=== PATIENT | male | born 1995 | race Caucasian/White ===

== ENCOUNTER 2025-04-22 09:07 | Emergency (ER) | payer OTHER, SELFPAY ==
[2025-04-22 09:09] VITALS: BP 126/90
--- NOTE | 2025-04-22 09:48 | ED.GENMED ---
History of Present Illness
General
Chief Complaint: Male Genito-Urinary Symptoms
Time Seen by Provider: 04/22/25 09:48
History of Present Illness
History of Present Illness:
FOCUSED PAST MEDICAL HISTORY
- Patient has history of testicular torsion
REVIEW OF OLD RECORDS
- No old records available for review in [facility]
Note:
CHIEF COMPLAINT(S)
Right sided testicular pain.
HISTORY OF PRESENT ILLNESS
The patient is a 29-year-old male with a past surgical history of varicocelectomy at age 19, presenting with right-sided testicular pain that began at 4:00 AM today. The patient describes this pain as similar but less severe than previous episodes.
No medication was taken for pain relief at home. A radiology report noted normal blood flow and no signs of orchitis. On examination, the cremasteric reflex was intact, indicating normal neural and muscular responses. There was no evidence of
testicular torsion or epididymitis on ultrasound. The patient also mentioned experiencing a sharp groin pain in March 12 after lifting at the gym, which initially led to an ER visit; however, no hernia was detected.
PHYSICAL EXAM
-General: Well appearing in no distress, appears comfortable
-HEENT: Moist oral mucosa
-Neurologic: Excellent strength all extremities, no obvious coordination deficits
-Psychiatric: Appropriate mental status, normal insight and judgement
-Extremities: Nontender, no edema, moves all extremities equally
-Skin: No rash, no lesions
-GI: No palpable hernia, no abdominal tenderness
-: Normal. Normal cremasteric reflex, questionable if any right epididymal tenderness, no significant scrotal swelling, no significant testicular tenderness
ADDITIONAL HISTORY OBTAINED FROM SOURCES OTHER THAN THE PATIENT
The patients family member is present during the evaluation and was apprised of the clinical findings and plan.
PAST MEDICAL AND SURGICAL HISTORY
The patient has a history of left-sided varicocele repair in April 2015.
PLAN
The patient is advised to follow up with a urologist, Dr. Cui, for outpatient management. The patient is instructed to take eckd-wxe-epwyjov anti-inflammatory medications, such as ibuprofen, three to four tablets every eight hours with food for a
few days to help reduce inflammation. The patient was educated on the symptoms of testicular torsion and instructed to seek immediate medical attention if severe pain recurs, at which point an ultrasound would be necessary to rule out torsion.
DIFFERENTIAL DIAGNOSIS
The Differential Diagnosis includes, in no particular order and is not limited to:
1. Testicular torsion
2. Epididymitis
3. Varicocele
4. Hydrocele
5. Inguinal hernia
6. Groin strain
7. Testicular trauma
8. Orchitis
9. Torsion of a testicular appendage
10. Renal colic
SUMMARY OF ENCOUNTER
The patient, a 29-year-old male, presented to the emergency department with right-sided testicular pain that began in the [employer]. The pain was described as similar to but less severe than previous episodes. No medication was taken at home for
pain relief. An ultrasound was performed, showing normal blood flow and no signs of orchitis or testicular torsion. The cremasteric reflex examination was normal with no evidence of epididymitis, torsion, or inguinal hernia. The patient has a
history of a left varicocelectomy. Consultation with Dr. Rivera was also made to discuss the case further, leading to reassurance and outpatient management advice.
DISPOSITION
Discharge.
PLAN
The patient is advised to follow up with a urologist, Dr. Cui, for outpatient management. Rxqo-dss-tmzjyzy anti-inflammatory medication ibuprofen is recommended, three to four tablets every eight hours with food for a few days. The patient was
educated on how to recognize symptoms indicative of testicular torsion and instructed to seek immediate medical attention if severe pain recurs.
INDEPENDENT REVIEW OF LABS AND INTERPRETATION OF TESTS
My independent interpretation of the ultrasound indicates normal blood flow with no signs of orchitis, testicular torsion, or epididymitis.
PATIENT EDUCATION AND COUNSELING
The patient was informed about the potential for intermittent testicular torsion and was advised to return to the emergency room if significant symptoms recurred.
FOLLOW-UP INSTRUCTIONS
The patient is instructed to follow up with a urologist, Dr. Cui, for outpatient management.
MEDICATION RECONCILIATION
The patient was advised on taking nhlm-jpn-wjqdfic ibuprofen, three to four tablets every eight hours with food for several days.
MEDICAL DECISION MAKING
-Complexity of Data Reviewed: Chronic conditions affecting care include a history of left-sided varicocele repair. Differential diagnoses considered were testicular torsion, epididymitis, varicocele, hydrocele, inguinal hernia, groin strain,
testicular trauma, orchitis, torsion of a testicular appendage, and renal colic.
-Data:
Category 1
Clinical information was obtained from an independent historian, the patient�s family member, who was present during the evaluation.
My independent interpretation of the ultrasound confirmed normal blood flow and absence of orchitis or testicular torsion.
Category 3
Discussion of management with Dr. Rivera.
-Risk:
Consideration of Admission/Observation: Escalation of care including admission/observation was considered given the complexity and risk of the patients presenting complaint and exam findings. However, ultimately it was determined that the patient is
safe for outpatient management with a close follow-up. Reasoning: Work-up was reassuring, no acute life/organ threatening processes were discovered, patients symptoms were well controlled upon reevaluation, vitals were stable, and the patient was
agreeable with discharge and reliable for follow-up.
DIAGNOSIS
Right-sided testicular pain, unspecified - ICD-10 code N50.9
RADIOLOGY
- Ultrasound shows no sign of torsion and no epididymitis
UPDATE
-I discussed case with Dr. Calderon who recommends NSAIDs.
Phy Exam
Physical Exam
Physical Exam:
See HPI
Course
Orders/Labs/Results
Orders:
Orders
04/22/25 09:13
US Scrotum Urgent
Comment:
Reason For Exam: torsion
Vital Signs
Initial and Last Documented VS:
Initial Vital Signs
Temp Pulse Resp BP Pulse Ox
36.6 C 83 20 126/90 100
04/22/25 09:09 04/22/25 09:09 04/22/25 09:09 04/22/25 09:09 04/22/25 09:09
Last Documented Vital Signs
Temp Pulse Resp BP Pulse Ox
36.6 C 83 20 126/90 100
04/22/25 09:09 04/22/25 09:09 04/22/25 09:09 04/22/25 09:09 04/22/25 09:48
*Pulse Oximetry
SaO2: 100
Patient hypoxic: no
*Critical Care Note
Total Time (30-74mins, 75-104mins- exclusive of procedures): Not Applicable
ED Attending Note
-
Portions of this chart may have been created with voice recognition software.� Occasional wrong word or��sound alike� substitutions may have occurred due to the inherent limitations of voice recognition software.
Discharge Plan
Departure
Patient Disposition: Home (Routine Discharge)
Date of Disposition: 04/22/25
Time of Disposition: 10:44
Patient with high blood pressure during this ER visit?: Yes
Discharge Problem:
Pain in right testicle
Referrals:
Obi Calderon MD [Active, Urology]
Melina Olivas PA-C [Family Provider]
Activity Restrictions/Additional Instructions:
I discussed case with Dr. Calderon, the on-call urologist�he recommends NSAIDs.I recommend 3-4 jbfp-ozh-elnyltt ibuprofen (Motrin) every 8 hours with food for a few days. Return here or go to the closest ER if worse. We also recommend to avoid
sexual intercourse for the next week and also recommend scrotal supportive underwear for the next week as well. He said that he wants you to call his office to make an appointment with him on April 29. The ultrasound today shows no
sign of torsion and no sign of epididymitis.
Interventions
Interventions:
*Risk Screen - Suicide Last Done: 04/22/25 09:12
*Neglect/Abuse Screening Last Done: 04/22/25 09:12
Discharge Date and Time
Print Language: ROMANIAN
== END 2025-04-22 11:11 | disposition home or self-care (01) ==
LOC: EMR 09:07
PROVIDERS: EMERGENCY PHYSICIAN Emergency Medicine; FAMILY PHYSICIAN Physician Assistant Medical
DX: N50.811 Right testicular pain (principal); Z98.890 Other specified postprocedural states
CPT/HCPCS: 99284; 76870; 93976